=== PATIENT | female | born 1960 | race Caucasian/White ===

== ENCOUNTER 2016-12-05 06:27 | Inpatient (IN) | payer OTHER ==
[~2016-12-05] VITALS: Ht 152.4 cm; Wt 51.3 kg
[~2016-12-05 06:27] MED LIST: ANTIVERT12.5 MG PO; ASPIR 8181 MG PO; CALCIUM ACETAT667 M3 PO; CARVEDILOL12.5 M1 PO; CARVEDILOL25 M1 PO; COL100 PO; GUAIFENESIN AN118 ML PO; HUMALOG100 U/ML SC; HYDRALAZINE50 M1 PO; INSULIN HUMA U; LAC PO; LANTUS SOLOS100 U/M1 SQ; LANTUS100 U/ML; LISINOPRIL10 MG; LISINOPRIL20 MG PO; PRO30 PO; PROMETHAZI6.25 MG/5; SENSIPAR30 M1 PO; SWEEN PO; ZIT250 PO; [UNRECOGNIZED DRUG - OTHER]; [UNRECOGNIZED DRUG - OTHER] PO
[2016-12-05 07:26] LABS: BASOPHIL % 0.3 % (0-2)
[2016-12-05 07:28] LABS: PLATELET COUNT 114 x10^3mcL (130-400); RED CELL DISTRIBUTION WIDTH 14.7 % (11.5-14.5)
[2016-12-05 07:46] LABS: ALBUMIN 3.6 g/dL (3.4-5.0); BILIRUBIN TOTAL 0.65 mg/dL (0.20-1.00); CARBON DIOXIDE 27.4 mmol/L (21-32); POTASSIUM SERUM 3.8 mmol/L (3.5-5.1); TOTAL PROTEIN, SERUM 6.8 g/dL (6.4-8.2)
[2016-12-05 07:47] LABS: CREATININE SERUM 4.3 mg/dL (0.6-1.0)
[2016-12-05 08:49] LABS: CHOLESTEROL/HDL RATIO 2.5
[2016-12-05 08:57] LABS: FREE T4 1.39 ng/dL (0.76-1.46); FREE THYROXINE INDEX 3.7 ug/dL (1.4-4.5); T3 TOTAL 0.83 ng/mL; T4(THYROXINE) 10.9 ug/dL (4.7-13.3)
[2016-12-05 10:51] VITALS: BP 221/79
[2016-12-05 14:09] VITALS: BP 173/65
[2016-12-05 15:22] VITALS: BP 163/63
[2016-12-05 20:39] VITALS: BP 120/78
[2016-12-05 22:06] VITALS: BP 158/74
[2016-12-06 06:18] LABS: BASOPHIL % 0.4 % (0-2)
[2016-12-06 06:27] VITALS: BP 133/57
[2016-12-06 06:43] LABS: PLATELET COUNT 116 x10^3mcL (130-400); RED CELL DISTRIBUTION WIDTH 14.6 % (11.5-14.5)
[2016-12-06 06:49] LABS: CALCIUM 8.8 mg/dL (8.5-10.1); CARBON DIOXIDE 25.1 mmol/L (21-32); MAGNESIUM 2.8 mg/dL (1.8-2.4); PHOSPHOROUS 3.5 mg/dL (2.5-4.9); POTASSIUM SERUM 4.1 mmol/L (3.5-5.1)
[2016-12-06 06:55] LABS: CREATININE SERUM 5.8 mg/dL (0.6-1.0)
[2016-12-06 10:29] VITALS: BP 130/53
[2016-12-06 14:00] VITALS: BP 182/64
[2016-12-06 15:03] VITALS: BP 171/55
[2016-12-06 20:37] VITALS: BP 110/53
[2016-12-06 21:06] VITALS: BP 168/64
[2016-12-07] VITALS (7 sets, daily range): BP systolic 126–186; BP diastolic 56–69
[2016-12-07 06:10] LABS: BASOPHIL % 0.4 % (0-2)
[2016-12-07 06:29] LABS: CALCIUM 8.6 mg/dL (8.5-10.1); CARBON DIOXIDE 28.7 mmol/L (21-32); PHOSPHOROUS 3.1 mg/dL (2.5-4.9); POTASSIUM SERUM 3.8 mmol/L (3.5-5.1)
[2016-12-07 06:30] LABS: PLATELET COUNT 104 x10^3mcL (130-400); RED CELL DISTRIBUTION WIDTH 14.8 % (11.5-14.5)
[2016-12-08 06:01] VITALS: BP 165/66
[2016-12-08 06:05] LABS: BASOPHIL % 0.2 % (0-2); RED CELL DISTRIBUTION WIDTH 14.4 % (11.5-14.5)
[2016-12-08 06:40] LABS: CALCIUM 8.8 mg/dL (8.5-10.1); CARBON DIOXIDE 26.9 mmol/L (21-32); MAGNESIUM 2.4 mg/dL (1.8-2.4); PHOSPHOROUS 2.5 mg/dL (2.5-4.9); POTASSIUM SERUM 4.5 mmol/L (3.5-5.1)
[2016-12-08 06:42] LABS: PLATELET COUNT 117 x10^3mcL (130-400)
[2016-12-08 06:52] LABS: CREATININE SERUM 5.6 mg/dL (0.6-1.0)
[2016-12-08 09:40] VITALS: BP 107/42
[2016-12-08 13:51] VITALS: BP 106/53
[2016-12-08 17:52] VITALS: BP 148/53
[2016-12-08 21:19] VITALS: BP 166/56
[2016-12-09 00:03] VITALS: BP 157/49
[2016-12-09 01:02] VITALS: Ht 152.4 cm; Wt 51.3 kg
[2016-12-09 05:50] VITALS: BP 166/59
[2016-12-09 06:56] LABS: BASOPHIL % 0.3 % (0-2); RED CELL DISTRIBUTION WIDTH 14.3 % (11.5-14.5)
[2016-12-09 07:00] LABS: CALCIUM 8.3 mg/dL (8.5-10.1); CARBON DIOXIDE 31.1 mmol/L (21-32); PHOSPHOROUS 2.9 mg/dL (2.5-4.9)
[2016-12-09 07:09] LABS: CREATININE SERUM 4.5 mg/dL (0.6-1.0)
[2016-12-09 07:24] LABS: PLATELET COUNT 118 x10^3mcL (130-400)
[2016-12-09] MEDS ORDERED: LIPI10 PO (10:11)
[2016-12-09] MEDS ORDERED: NEP PO (10:11)
[2016-12-09] MEDS ORDERED: ZITHROMAX Z-PA250 MG PO (10:16)
[2016-12-09] MEDS ORDERED: LAC PO (10:17)
[2016-12-09 10:26] VITALS: BP 133/52
[2016-12-09 11:08] VITALS: BP 133/52
[2016-12-09] MEDS ORDERED: HYDRALAZINE HCL25 MG PO (11:31)
[2016-12-09 14:00] VITALS: BP 111/54
== END 2016-12-09 15:40 | disposition home or self-care (01) | DRG 682 ==
LOC: ED 06:27 → DU 08:15
PROVIDERS: Emergency Medicine; Family Medicine; ADMIT Family Medicine
DX: N18.6 End stage renal disease (principal); J96.01 Acute respiratory failure with hypoxia; K21.9 Gastro-esophageal reflux disease without esophagitis; N17.0 Acute kidney failure with tubular necrosis; I12.0 Hypertensive chronic kidney disease with stage 5 chronic kidney disease or end stage renal disease; I16.0 Hypertensive urgency; E11.22 Type 2 diabetes mellitus with diabetic chronic kidney disease; E11.65 Type 2 diabetes mellitus with hyperglycemia; E11.51 Type 2 diabetes mellitus with diabetic peripheral angiopathy without gangrene; E78.5 Hyperlipidemia, unspecified; Z91.14 Patient's other noncompliance with medication regimen; Z99.2 Dependence on renal dialysis; Z79.4 Long term (current) use of insulin
CPT/HCPCS: 36600; 82962; 83880; 84439; J1815; J1956; J3490; J7030; J7620; J7626; Q0092

== ENCOUNTER 2017-01-02 04:57 | Emergency (ER) | payer OTHER ==
[~2017-01-02 04:57] MED LIST changes: +HYDRALAZINE HCL25 MG PO; +LIPI10 PO; +NEP PO; +ZITHROMAX Z-PA250 MG PO
[2017-01-02 07:05] VITALS: BP 146/80
== END 2017-01-02 07:05 | disposition home or self-care (01) ==
LOC: ED 04:57
DX: J18.9 Pneumonia, unspecified organism (principal)

== ENCOUNTER 2017-10-06 08:50 | Emergency (ER) | payer OTHER ==
[2017-10-06 10:09] LABS: BASOPHIL % 0.5 % (0-2)
[2017-10-06 10:19] LABS: PLATELET COUNT 115 x10^3mcL (130-400); RED CELL DISTRIBUTION WIDTH 17.1 % (11.5-14.5)
[2017-10-06 10:32] LABS: ALBUMIN 3.5 g/dL (3.4-5.0); BILIRUBIN TOTAL 0.4 mg/dL (0.20-1.00); POTASSIUM SERUM 3.8 mmol/L (3.5-5.1); TOTAL PROTEIN, SERUM 6.7 g/dL (6.4-8.2)
[2017-10-06 10:43] LABS: CALCIUM 10.8 mg/dL (8.5-10.1)
[2017-10-06 11:47] VITALS: BP 155/62
== END 2017-10-06 12:15 | disposition home or self-care (01) ==
LOC: ED 08:50
PROVIDERS: Emergency Medicine
DX: R10.13 Epigastric pain (principal); E11.22 Type 2 diabetes mellitus with diabetic chronic kidney disease; I12.0 Hypertensive chronic kidney disease with stage 5 chronic kidney disease or end stage renal disease; N18.6 End stage renal disease
CPT/HCPCS: 83880; J0360; J2405

== ENCOUNTER 2018-08-18 15:57 | Emergency (ER) | payer OTHER, MEDICAID ==
[~2018-08-18] VITALS: Ht 134.6 cm; Wt 53.1 kg
[2018-08-18 15:58] VITALS: Ht 134.6 cm; Wt 53.1 kg
[2018-08-18 16:36] LABS: BASOPHIL % 0.3 % (0-2); PLATELET COUNT 131 x10^3mcL (130-400); RED CELL DISTRIBUTION WIDTH 13.7 % (11.5-14.5)
[2018-08-18 16:46] LABS: BILIRUBIN TOTAL 0.48 mg/dL (0.20-1.00); CALCIUM 8.7 mg/dL (8.5-10.1); CARBON DIOXIDE 22.1 mmol/L (21-32); TOTAL PROTEIN, SERUM 6.6 g/dL (6.4-8.2)
[2018-08-18 17:06] LABS: ALBUMIN 3.2 g/dL (3.4-5.0)
[2018-08-18 17:15] LABS: CREATININE SERUM 10.3 mg/dL (0.6-1.0)
[2018-08-18 19:01] VITALS: BP 170/70
== END 2018-08-18 19:01 | disposition home or self-care (01) ==
LOC: ED 15:57
PROVIDERS: Emergency Medicine
DX: R10.13 Epigastric pain (principal); R11.10 Vomiting, unspecified; E11.22 Type 2 diabetes mellitus with diabetic chronic kidney disease; I12.0 Hypertensive chronic kidney disease with stage 5 chronic kidney disease or end stage renal disease; N18.6 End stage renal disease; Z99.2 Dependence on renal dialysis
CPT/HCPCS: J2405; J3490; Q0092

== ENCOUNTER 2018-09-19 08:52 | Emergency (ER) | payer OTHER ==
[~2018-09-19] VITALS: Ht 134.6 cm; Wt 49.9 kg
[2018-09-19 08:56] VITALS: Ht 134.6 cm; Wt 49.9 kg
[2018-09-19 10:37] LABS: BASOPHIL % 0.8 % (0-2); PLATELET COUNT 145 x10^3mcL (130-400)
[2018-09-19 10:39] LABS: RED CELL DISTRIBUTION WIDTH 15.7 % (11.5-14.5)
[2018-09-19] MEDS ORDERED: CARVEDILOL12.5 M1 PO (10:50)
[2018-09-19] MEDS ORDERED: XANAX0.25 MG PO (10:51)
[2018-09-19] MEDS ORDERED: ZOF4 PO (10:52)
[2018-09-19 10:53] LABS: BILIRUBIN TOTAL 0.65 mg/dL (0.20-1.00); CALCIUM 8.6 mg/dL (8.5-10.1); CARBON DIOXIDE 38.7 mmol/L (21-32); POTASSIUM SERUM 4.8 mmol/L (3.5-5.1)
[2018-09-19] MEDS ORDERED: SENSIPAR30 M1 PO (10:53)
[2018-09-19 11:02] LABS: ALBUMIN 3.2 g/dL (3.4-5.0)
[2018-09-19 11:03] LABS: CREATININE SERUM 5.2 mg/dL (0.6-1.0)
[2018-09-19 11:57] VITALS: BP 135/50
== END 2018-09-19 11:57 | disposition home or self-care (01) ==
LOC: ED 08:52
PROVIDERS: Emergency Medicine
DX: E11.649 Type 2 diabetes mellitus with hypoglycemia without coma (principal); I10 Essential (primary) hypertension; E11.22 Type 2 diabetes mellitus with diabetic chronic kidney disease; I12.0 Hypertensive chronic kidney disease with stage 5 chronic kidney disease or end stage renal disease; N18.6 End stage renal disease; Z98.890 Other specified postprocedural states; Z99.2 Dependence on renal dialysis
CPT/HCPCS: 36415; 82962